=== PATIENT | male | born 1985 | race Hispanic/Latino ===

== ENCOUNTER 2023-07-21 21:58 | Emergency (ER) | payer OTHER ==
[~2023-07-21] VITALS: Ht 177.8 cm; Wt 117.9 kg
[~2023-07-21 21:58] MED LIST: ADVAIR 250-501 EACH INH; ALBUTEROL2.5 MG/3 M INH; PREDNISONE20 MG PO; VENTOLIN HFA18 GM INH
--- OUTSIDE RECORDS SUMMARY | 2023-07-21 22:07 | XMS ---
PreManage Notification: TORRI ESPINO Security Model Maker Plaster Events No recent Security Events currently on file CRITERIA MET - [facility] - 2 Visits in 30 Days CARE PROVIDERS -Lesa- Dentist: Nurse Discharge Planner [facility] PHONE: [phone] JUVE FERNÁNDEZ Technical Training Specialist Current PHONE: Unknown CHELSEY FLOREZ Physician Technical Training Specialist: Medical Current PHONE: Unknown Duran has no Care Guidelines for this patient. E.D. VISIT COUNT (12 MO.) 4 DAX Jacobs TOTAL 4 NOTE: Visits indicate total known visits. ED/UCC VISIT TRACKING (12 MO.) 07/21/2023 21:59 [facility] [place] TYPE: Emergency COMPLAINT: - SHORTNESS OF BREATH 07/02/2023 18:38 [facility] [place] TYPE: Emergency COMPLAINT: - SHORTNESS OF BREATH DIAGNOSES: - Contact with and (suspected) exposure to COVID-19 - Other longterm (current) drug therapy - Shortness of breath - Unspecified asthma, uncomplicated 09/27/2022 17:28 [facility] [place] TYPE: Emergency COMPLAINT: - SHORTNESS OF BREATH DIAGNOSES: - Dyspnea, unspecified - Unspecified asthma with (acute) exacerbation 09/27/2022 00:00 [facility] [place] TYPE: Emergency COMPLAINT: - SHORTNESS OF BREATH INPATIENT VISIT TRACKING (12 MO.) No inpatient visits to display in this time frame [id number]
[2023-07-21 22:12] LABS: BASOPHILS 1.1 % (0-2); EOSINOPHILS 9.6 % (0-6); HEMATOCRIT 46.5 % (35.0-50.0); LYMPHOCYTES 24.7 % (24-44); MCH 27.3 (27-36); MCHC 32.1 g/dl (30-36); MONOCYTES 5.5 % (0-12); NEUTROPHILS 59.1 % (39-80); PLATELET COUNT 329 K/uL (140-440); RBC 5.47 M/ul (4.3-5.7); RDW 15.5 (10.5-15.0)
[2023-07-21 22:20] LABS: PH, VENOUS 7.323 (7.31-7.41)
[2023-07-21 22:33] LABS: ALBUMIN 4.3 g/dL (3.4-5.0); ALBUMIN/GLOBULIN RATIO 1.23 (1.1-2.4); ALKALINE PHOSPHATASE 99 U/L (46-116); ALT (SGPT) 19 U/L (14-59); ANION GAP 10.9 (7-21); AST (SGOT) 17 U/L (15-37); BILIRUBIN, TOTAL 0.5 ng/dL (0.2-1.0); CALCIUM 8.6 mg/dL (8.5-10.1); CARBON DIOXIDE 28 mmol/L (21-32); CHLORIDE 104 mmol/L (98-107); CREATININE, SERUM 1.18 mg/dL (0.70-1.30); GLOMERULAR FILTRATION RATE,EST 81 mL/min (>60); POTASSIUM 3.9 mmol/L (3.5-5.1); PROTEIN, TOTAL 7.8 g/dL (6.4-8.2); UREA NITROGEN 17 mg/dL (7-18)
[2023-07-21 22:39] LABS: LACTIC ACID, BLOOD 0.8 mmol/L (0.4-2.0)
[2023-07-21 23:25] LABS: INFLUENZA B NAA NEGATIVE (NEGATIVE); RESPIRATORY SYNCYTIAL VIR NAA NEGATIVE (NEGATIVE)
[2023-07-21] MEDS ORDERED: PREDNISONE20 MG PO (23:37)
[2023-07-21 23:42] VITALS: BP 133/79
--- NOTE | 2023-07-22 05:59 | EKG ---
[facility] [address] [place] [address] Signed Sinus tachycardia with premature atrial complexes Otherwise normal ECG No previous ECGs available Confirmed by VALERIE LINTON MD ([id number]) on 07/22/2023 5:59:11 AM Electronically Signed By: VALERIE LINTON 07/22/23 0559 PATIENT NAME: TORRI ESPINO Electrocardiogram DATE OF : 85 PHYSICIAN: VALERIE LINTON REPORT #: [id number] REPORT IS CONFIDENTIAL AND NOT TO BE RELEASED WITHOUT AUTHORIZATION
== END 2023-07-21 23:49 | disposition home or self-care (01) ==
LOC: ED 21:58
PROVIDERS: Internal Medicine
DX: J45.901 Unspecified asthma with (acute) exacerbation (principal); F17.200 Nicotine dependence, unspecified, uncomplicated; Z79.899 Other long term (current) drug therapy; Z20.822 Contact with and (suspected) exposure to COVID-19
CPT/HCPCS: 36415; 71045; 80053; 82803; 83605; 83880; 84484; 85025; 87502; 93005; 93010; C9803; J2930; U0002

== ENCOUNTER 2024-04-24 13:06 | Emergency (ER) | payer OTHER ==
[~2024-04-24] VITALS: Ht 177.8 cm; Wt 114.7 kg
[2024-04-24] MEDS ORDERED: ALBUTEROL/IPRATROPIUM 3 ML NEB ONE (13:13)
[2024-04-24] MEDS ORDERED: predniSONE 20 MG TAB PO ONE (13:30)
[2024-04-24] MEDS ORDERED: ALBUTEROL/IPRATROPIUM 3 ML NEB INH ONE (13:30)
[2024-04-24] MEDS ORDERED: ALBUTEROL SULFATE 0.5% 2.5 MG/0.5 ML VIAL INH ONE (13:45)
[2024-04-24] MEDS ORDERED: PREDNISONE20 MG PO (15:46)
[2024-04-24] MEDS ORDERED: VENTOLIN HFA18 GM INH (15:46)
[2024-04-24 16:05] VITALS: BP 147/95
== END 2024-04-24 15:59 | disposition home or self-care (01) ==
LOC: ED 13:06
DX: J45.901 Unspecified asthma with (acute) exacerbation (principal)
CPT/HCPCS: 94640; 99284; J7512

== ENCOUNTER 2024-07-01 06:50 | Emergency (ER) | payer OTHER ==
[~2024-07-01] VITALS: Ht 177.8 cm; Wt 123.0 kg
[2024-07-01] MEDS ORDERED: ALBUTEROL/IPRATROPIUM 3 ML NEB INH ONE (07:00)
[2024-07-01] MEDS ORDERED: predniSONE 20 MG TAB PO ONE (07:15)
[2024-07-01] MEDS ORDERED: IPRAT-ALBUT 0.5-3 ML INH (07:39)
[2024-07-01] MEDS ORDERED: ALBUTEROL SULFATE 0.083% 3 ML VIAL INH ONE (07:45)
[2024-07-01 07:53] VITALS: BP 129/94
== END 2024-07-01 07:53 | disposition home or self-care (01) ==
LOC: ED 06:50
DX: J45.901 Unspecified asthma with (acute) exacerbation (principal)
CPT/HCPCS: 94640; 99284-25; J7512

== ENCOUNTER 2024-07-19 00:05 | Emergency (ER) | payer OTHER ==
[~2024-07-19] VITALS: Ht 177.8 cm; Wt 124.8 kg
[~2024-07-19 00:05] MED LIST changes: +IPRAT-ALBUT 0.5-3 ML INH
[2024-07-19] MEDS ORDERED: ALBUTEROL/IPRATROPIUM 3 ML NEB ONE (00:07)
--- OUTSIDE RECORDS SUMMARY | 2024-07-19 00:07 | XMS ---
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 Jono VISIT COUNT (12 MO.) 5 DAX Jacobs TOTAL 5 NOTE: Visits indicate total known visits. ED/UCC VISIT TRACKING (12 MO.) 07/19/2024 00:05 [facility] TYPE: Emergency COMPLAINT: - DIFFICULTY BREATHING 07/01/2024 06:51 [facility] OR TYPE: Emergency COMPLAINT: - DIFFICULTY BREATHING DIAGNOSES: - Shortness of breath - Unspecified asthma with (acute) exacerbation 04/24/2024 13:06 [facility] TYPE: Emergency COMPLAINT: - SHORTNESS OF BREATH DIAGNOSES: - Unspecified asthma with (acute) exacerbation 03/01/2024 16:45 [facility] OR TYPE: Emergency COMPLAINT: - ASTHMATIC DIAGNOSES: - Shortness of breath - Unspecified asthma with (acute) exacerbation 07/21/2023 21:59 [facility] OR TYPE: Emergency COMPLAINT: - SHORTNESS OF BREATH DIAGNOSES: - Contact with and (suspected) exposure to COVID-19 - Nicotine dependence, unspecified, uncomplicated - Other fpc (current) drug therapy - Shortness of breath - Unspecified asthma with (acute) exacerbation INPATIENT VISIT TRACKING (12 MO.) No inpatient visits to display in this time frame [id number]
[2024-07-19] MEDS ORDERED: ALBUTEROL/IPRATROPIUM 3 ML NEB INH ONE (00:15)
[2024-07-19] MEDS ORDERED: NEBULIZER UNIT XX (00:29)
[2024-07-19 00:36] VITALS: BP 131/79
== END 2024-07-19 00:38 | disposition home or self-care (01) ==
LOC: ED 00:05
DX: J45.901 Unspecified asthma with (acute) exacerbation (principal); Z79.52 Long term (current) use of systemic steroids
CPT/HCPCS: 94640; 99284

== ENCOUNTER 2024-08-04 06:30 | Emergency (ER) | payer OTHER ==
[~2024-08-04] VITALS: Ht 175.3 cm; Wt 125.0 kg
[~2024-08-04 06:30] MED LIST changes: +NEBULIZER UNIT XX
--- OUTSIDE RECORDS SUMMARY | 2024-08-04 06:35 | XMS ---
PreManage Notification: TORRI ESPINO Security Rim Roller Operator Events No recent Security Events currently on file CRITERIA MET - [facility] - 2 Visits in 30 Days CARE PROVIDERS -, [facility] Dentist: Trackman [facility] PHONE: [phone] -Lesa- Dentist: Trackman [facility] PHONE: [phone] CHELSEY FLOREZ Physician Geriatric Physician: Medical Current PHONE: [facility] PH[facility]: [phone] Duran has no Care Guidelines for this patient. Jono VISIT COUNT (12 MO.) 5 DAX Jacobs TOTAL 5 NOTE: Visits indicate total known visits. 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
[2024-08-04] MEDS ORDERED: ALBUTEROL/IPRATROPIUM 3 ML NEB INH ONE (06:45)
[2024-08-04] MEDS ORDERED: IPRAT-ALBUT 0.5-3 ML INH (07:12)
[2024-08-04 07:16] VITALS: BP 134/74
== END 2024-08-04 07:17 | disposition home or self-care (01) ==
LOC: ED 06:30
DX: J45.909 Unspecified asthma, uncomplicated (principal); Z79.899 Other long term (current) drug therapy
CPT/HCPCS: 94640; 99284-25

== ENCOUNTER 2024-08-10 00:38 | Emergency (ER) | payer OTHER ==
[~2024-08-10] VITALS: Ht 175.3 cm; Wt 115.0 kg
--- OUTSIDE RECORDS SUMMARY | 2024-08-10 00:44 | XMS ---
PreManage Notification: TORRI ESPINO Security Rotary Machine Operator Events No recent Security Events currently on file CRITERIA MET - 6 ED Visits in 6 Months - [facility] - 2 Visits in 30 Days CARE PROVIDERS -, [facility] Dentist: Solar Sales Assessor [facility] PHONE: [phone] -Lesa- Dentist: Solar Sales Assessor [facility] PHONE: [phone] CHELSEY FLOREZ Physician Closing Specialist: Medical Current PHONE: Unknown [facility] PHONE: [phone] Duran has no Care Guidelines for this patient. Jono VISIT COUNT (12 MO.) 6 DAX Jacobs TOTAL 6 NOTE: Visits indicate total known visits. ED/UCC VISIT TRACKING (12 MO.) 08/10/2024 00:38 [facility] OR TYPE: Emergency COMPLAINT: - CHEST TIGHT/SOB 08/04/2024 06:31 [facility] OR TYPE: Emergency COMPLAINT: - SHORTNESS OF BREATH 07/19/2024 00: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 [place] TYPE: Emergency COMPLAINT: - ASTHMATIC DIAGNOSES: - Shortness of breath - Unspecified asthma with (acute) exacerbation INPATIENT VISIT TRACKING (12 MO.) No inpatient visits to display in this time frame [id number]
[2024-08-10] MEDS ORDERED: ALBUTEROL/IPRATROPIUM 3 ML NEB INH ONE (00:45)
[2024-08-10] MEDS ORDERED: methylPREDNISolone SOD SUCC 125 MG/2 ML VIAL IV ONE (00:45)
[2024-08-10 02:05] VITALS: BP 122/90
--- NOTE | 2024-08-10 20:52 | EKG ---
[facility] [address] [place] [address] Signed Normal sinus rhythm Normal ECG When compared with ECG of 21-JUL-2023 22:05, premature atrial complexes are no longer present Confirmed by Meera Bellamy MD ([id number]) on 08/10/2024 8:51:58 PM Electronically Signed By: MEERA BELLAMY DO 08/10/242051 PATIENT NAME: TORRI ESPINO Electrocardiogram DATE OF : 85 PHYSICIAN: MEERA BELLAMY DO REPORT #: [id number] REPORT IS CONFIDENTIAL AND NOT TO BE RELEASED WITHOUT AUTHORIZATION
== END 2024-08-10 02:08 | disposition home or self-care (01) ==
LOC: ED 00:38
DX: J45.909 Unspecified asthma, uncomplicated (principal); Z79.899 Other long term (current) drug therapy
CPT/HCPCS: 93005; 93010; 94640; 99284; J2919

== ENCOUNTER 2024-08-24 01:45 | Emergency (ER) | payer OTHER ==
[~2024-08-24] VITALS: Ht 175.3 cm; Wt 115.0 kg
--- OUTSIDE RECORDS SUMMARY | 2024-08-24 01:47 | XMS ---
PreManage Notification: TORRI ESPINO Security Director Of Blood Events No recent Security Events currently on file CRITERIA MET - 6 ED Visits in 6 Months - [facility] - 2 Visits in 30 Days CARE PROVIDERS -, [facility] Dentist: Pipe Threading Machine Operator [facility] PHONE: [phone] -Lesa- Dentist: Pipe Threading Machine Operator [facility] PHONE: [phone] CHELSEY FLOREZ Physician Hazardous Material Technician: Medical Current PHONE: Unknown [facility] \F\ [facility] PHONE: [phone] Duran has no Care Guidelines for this patient. Jono VISIT COUNT (12 MO.) 7 DAX Jacobs TOTAL 7 NOTE: Visits indicate total known visits. ED/UCC VISIT TRACKING (12 MO.) 08/24/2024 01:46 [facility] TYPE: Emergency COMPLAINT: - DIFFICULTY BREATHING 08/10/2024 00:38 [facility] TYPE: Emergency COMPLAINT: - CHEST TIGHT/SOB DIAGNOSES: - Other long term care social worker (current) drug therapy - Shortness of breath - Unspecified asthma, uncomplicated 08/04/2024 06:31 [facility] TYPE: Emergency COMPLAINT: - SHORTNESS OF BREATH DIAGNOSES: - Other long term care social worker (current) drug therapy - Shortness of breath - Unspecified asthma, uncomplicated 07/19/2024 00:05 [facility] [place] TYPE: Emergency COMPLAINT: - DIFFICULTY BREATHING DIAGNOSES: - [facility] (current) use of systemic steroids - Shortness [...] visits to display in this time frame [id number]
[2024-08-24] MEDS ORDERED: ALBUTEROL SULFATE 0.5% 2.5 MG/0.5 ML VIAL INH ONE (02:00)
[2024-08-24] MEDS ORDERED: methylPREDNISolone SOD SUCC 125 MG/2 ML VIAL IV ONE (02:00)
[2024-08-24] MEDS ORDERED: ALBUTEROL/IPRATROPIUM 3 ML NEB INH ONE (02:00)
[2024-08-24] MEDS ORDERED: methylPREDNISolone 4 MG HOME.PACK PO ONE (02:15)
[2024-08-24] MEDS ORDERED: AZITHROMYCIN 250 MG HOME.PACK PO ONE (02:15)
[2024-08-24] MEDS ORDERED: BUDESONIDE0.5 MG/2 M INH (02:16)
[2024-08-24] MEDS ORDERED: ALBUTEROL2.5 MG/3 M INH (02:16)
[2024-08-24 02:43] VITALS: BP 141/90
== END 2024-08-24 02:38 | disposition home or self-care (01) ==
LOC: ED 01:45
DX: J45.901 Unspecified asthma with (acute) exacerbation (principal); Z79.899 Other long term (current) drug therapy
CPT/HCPCS: 71045; 94640; 94644; 96374; 99285-25; J2919

== ENCOUNTER 2024-10-02 22:53 | Emergency (ER) | payer OTHER ==
[~2024-10-02] VITALS: Ht 175.3 cm; Wt 123.4 kg
[~2024-10-02 22:53] MED LIST changes: +BUDESONIDE0.5 MG/2 M INH
--- OUTSIDE RECORDS SUMMARY | 2024-10-02 22:55 | XMS ---
PreManage Notification: TORRI ESPINO Security Supervisor Tank Storage Events No recent Security Events currently on file CRITERIA MET - 6 ED Visits in 6 Months CARE PROVIDERS -, [facility] Dentist: Entry Level Civil Engineer [facility] PHONE: [phone] -Lesa- Dentist: Entry Level Civil Engineer [facility] PHONE: [phone] CHELSEY FLOREZ Physician Sewage Treatment Plant Operator: Medical Current PHONE: Unknown [facility] \F\ [facility] PHONE: [phone] Duran has no Care Guidelines for this patient. Jono VISIT COUNT (12 MO.) 8 DAX Jacobs TOTAL 8 NOTE: Visits indicate total known visits. ED/UCC VISIT TRACKING (12 MO.) 10/02/2024 22:54 [facility] [place] TYPE: Emergency COMPLAINT: - SOB 08/24/2024 01:46 [facility] TYPE: Emergency COMPLAINT: - DIFFICULTY BREATHING DIAGNOSES: - Other licensed club manager (current) drug therapy - Shortness of breath - Unspecified asthma with (acute) exacerbation 08/10/2024 00:38 [facility] [place] TYPE: Emergency COMPLAINT: - CHEST TIGHT/SOB DIAGNOSES: - Other senior living (current) drug therapy - Shortness of breath - Unspecified asthma, uncomplicated 08/04/2024 06:31 [facility] TYPE: Emergency COMPLAINT: - SHORTNESS OF BREATH DIAGNOSES: - Other senior living (current) drug therapy - Shortness of breath - Unspecified asthma, uncomplicated 07/19/2024 00:05 [facility] [place] TYPE: Emergency COMPLAINT: - DIFFICULTY BREATHING DIAGNOSES: - 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
[2024-10-02] MEDS ORDERED: ALBUTEROL/IPRATROPIUM 3 ML NEB INH ONE (23:15)
[2024-10-02] MEDS ORDERED: BUDESONIDE 0.5 MG/2 ML VIAL INH ONE (23:15)
[2024-10-02] MEDS ORDERED: SINGULAIR10 MG PO (23:20)
[2024-10-02] MEDS ORDERED: MONTELUKAST SODIUM 10 MG TAB PO ONE (23:30)
[2024-10-02 23:44] VITALS: BP 140/92
== END 2024-10-02 23:44 | disposition home or self-care (01) ==
LOC: ED 22:53
DX: J45.909 Unspecified asthma, uncomplicated (principal); Z79.51 Long term (current) use of inhaled steroids
CPT/HCPCS: 94640; 99284-25

== ENCOUNTER 2025-05-19 13:51 | Emergency (ER) | payer OTHER ==
[~2025-05-19] VITALS: Ht 175.3 cm; Wt 125.0 kg
[~2025-05-19 13:51] MED LIST changes: +SINGULAIR10 MG PO
[2025-05-19] MEDS ORDERED: ALBUTEROL/IPRATROPIUM 3 ML NEB INH ONE (14:15)
[2025-05-19 14:26] LABS: CORONAVIRUS COVID-19 AG NEGATIVE (NEGATIVE)
[2025-05-19] MEDS ORDERED: ALBUTEROL SULFATE 0.5% 2.5 MG/0.5 ML VIAL INH ONE ×2 (14:45→15:00)
[2025-05-19] MEDS ORDERED: VENTOLIN HFA18 GM INH (14:46)
[2025-05-19] MEDS ORDERED: PREDNISONE20 MG PO (14:46)
[2025-05-19 15:39] VITALS: BP 150/85
== END 2025-05-19 15:40 | disposition home or self-care (01) ==
LOC: ED 13:51
PROVIDERS: Emergency Medicine
DX: J45.901 Unspecified asthma with (acute) exacerbation (principal); Z79.899 Other long term (current) drug therapy
CPT/HCPCS: 36415; 94640; 96374; 99285-25; J2919